=== PATIENT | male | born 1945 | race Caucasian/White ===

== ENCOUNTER → 2016-09-13 | Outpatient (REF) | payer MEDICARE, OTHER ==
[2016-09-13 18:01] LABS: PERCENT SATURATION 6.6 % (19.7-37.4)
== END ==
LOC: M LAB REF 16:22
PROVIDERS: ATTEND Internal Medicine
DX: D50.9 Iron deficiency anemia, unspecified (principal)

== ENCOUNTER → 2017-03-16 | Outpatient (REF) | payer MEDICARE, OTHER ==
[2017-03-16 13:32] LABS: PERCENT SATURATION 10.8 % (19.7-50.0)
== END ==
LOC: M LAB REF 12:58
PROVIDERS: ATTEND Internal Medicine
DX: D50.9 Iron deficiency anemia, unspecified (principal)

== ENCOUNTER → 2017-08-21 | Outpatient (REF) | payer MEDICARE, OTHER ==
[2017-08-21 13:06] LABS: FERRITIN 9 NG/ML (26-388); IRON (FE) 72 UG/DL (65-175); PERCENT SATURATION 18.9 % (19.7-50.0); TOTAL IRON BINDING CAPACITY 380 UG/DL (250-450)
== END ==
LOC: M LAB REF 12:28
DX: D50.9 Iron deficiency anemia, unspecified (principal)
CPT/HCPCS: 83550

== ENCOUNTER 2017-11-28 10:40 | Day surgery (SDC) | payer MEDICARE, BC, OTHER ==
[2017-11-28] MEDS: TRIAMCINOLONE PRES FR 40 MG/ML 1ML(TRIESENCE)(OR EYE ONLY)(J3300 PER 1MG) As Ordered (06:46)
[~2017-11-28 10:40] MED LIST: MIDAZOLAM INJ 2 MG/2 ML VIAL (J2250) As Ordered; PHENYLEPHRINE HCL 10 % OPHTH. SOL 5ML OD; fentaNYL 100 MCG/2 ML INJECTION (J3010) As Ordered
[2017-11-28] MEDS: TROPICAMIDE 1% OPHTH SOLN 2ML OD (12:28)
[2017-11-28] MEDS: PHENYLEPHRINE 2.5% OPHTH SOL 2ML OD (12:28)
[2017-11-28] MEDS: OFLOXACIN 0.3 % (OCUFLOX) OPTH SOL 5ML OD (12:28)
[2017-11-28] MEDS: LIDOCAINE 3.5 % 1ML OPHTH TOPICAL GEL OU (12:28)
[2017-11-28] MEDS: CYCLOPENTOLATE 2% OPHTH SOLN 2ML BTL OD (12:28)
[2017-11-28 12:39] LABS: BEDSIDE GLUCOSE 99 MG/DL (83-110)
[2017-11-28] MEDS: POVIDONE-IODINE 5% OPHTH PREP SOL 30ML As Ordered (14:05)
[2017-11-28] MEDS: HEALON DUET (HEALON 10MG/ML 0.55ML & HEALON ENDOCOAT 30MG/ML 0.85ML) As Ordered ×3 (14:11→14:31)
[2017-11-28] MEDS: LIDOCAINE 1% SDV 5 ML VIAL As Ordered (14:20)
[2017-11-28] MEDS: BSS with VANC/TOB/EPI for EYE CASES IR (14:26)
[2017-11-28] MEDS: CEFUROXIME 1MG/0.1ML INTRACAMERAL INJ As Ordered (14:26)
[2017-11-28] MEDS ORDERED: fentaNYL 100 MCG/2 ML INJECTION (J3010) As Ordered (14:26)
== END 2017-11-28 15:24 | disposition home or self-care (01) ==
LOC: M SDC 10:40
DX: H26.9 Unspecified cataract (principal); H40.811 Glaucoma with increased episcleral venous pressure, right eye; I10 Essential (primary) hypertension; K21.9 Gastro-esophageal reflux disease without esophagitis; E11.9 Type 2 diabetes mellitus without complications; Z79.82 Long term (current) use of aspirin; Z79.899 Other long term (current) drug therapy; Z88.1 Allergy status to other antibiotic agents; Z88.8 Allergy status to other drugs, medicaments and biological substances
CPT/HCPCS: 66984

== ENCOUNTER 2017-12-05 11:16 | Day surgery (SDC) | payer MEDICARE, BC, OTHER ==
[~2017-12-05 11:16] MED LIST changes: +ACETAMINOPHEN 325 MG TAB PO; +CYCLOPENTOLATE 2% OPHTH SOLN 2ML BTL OS; +LIDOCAINE 3.5 % 1ML OPHTH TOPICAL GEL OU; -MIDAZOLAM INJ 2 MG/2 ML VIAL (J2250) As Ordered; +OFLOXACIN 0.3 % (OCUFLOX) OPTH SOL 5ML OS; +PHENYLEPHRINE 2.5% OPHTH SOL 2ML OS; -PHENYLEPHRINE HCL 10 % OPHTH. SOL 5ML OD; +PHENYLEPHRINE HCL 10 % OPHTH. SOL 5ML OS; +PROPARACAINE 0.5% OPHTH SOL 15ML XX; +TROPICAMIDE 1% OPHTH SOLN 2ML OS; -fentaNYL 100 MCG/2 ML INJECTION (J3010) As Ordered
[2017-12-05] MEDS ORDERED: MIDAZOLAM INJ 2 MG/2 ML VIAL (J2250) As Ordered ×2 (13:01)
[2017-12-05] MEDS ORDERED: fentaNYL 100 MCG/2 ML INJECTION (J3010) As Ordered ×4 (13:01→15:14)
[2017-12-05 13:30] LABS: BEDSIDE GLUCOSE 95 MG/DL (83-110)
[2017-12-05] MEDS: POVIDONE-IODINE 5% OPHTH PREP SOL 30ML As Ordered ×2 (15:09)
[2017-12-05] MEDS: CEFUROXIME 1MG/0.1ML INTRACAMERAL INJ As Ordered ×2 (15:09)
[2017-12-05] MEDS: HEALON DUET (HEALON 10MG/ML 0.55ML & HEALON ENDOCOAT 30MG/ML 0.85ML) As Ordered ×4 (15:09→15:15)
[2017-12-05] MEDS: LIDOCAINE 1% SDV 5 ML VIAL As Ordered ×2 (15:09)
[2017-12-05] MEDS: BSS with VANC/TOB/EPI for EYE CASES IR ×2 (15:09)
[2017-12-05] MEDS: LIDOCAINE 2% W/EPIN INJ 20ML **PRES FREE As Ordered ×2 (15:09)
[2017-12-05] MEDS: AcetaZOLAMIDE 500 MG ER CAP PO ×2 (16:00)
[2017-12-05] MEDS ORDERED: TRIMETHOBENZAMIDE 300 MG CAP PO ×2 (16:00)
[2017-12-05] MEDS: KETOROLAC 0.5% OPHTH SOLN XX ×2 (16:01)
== END 2017-12-05 16:15 | disposition home or self-care (01) ==
LOC: M SDC 11:16
DX: H26.9 Unspecified cataract (principal); H40.9 Unspecified glaucoma; I10 Essential (primary) hypertension; E11.9 Type 2 diabetes mellitus without complications; K21.9 Gastro-esophageal reflux disease without esophagitis; R06.83 Snoring; D50.9 Iron deficiency anemia, unspecified; E78.5 Hyperlipidemia, unspecified; Z88.8 Allergy status to other drugs, medicaments and biological substances; Z79.899 Other long term (current) drug therapy; Z79.82 Long term (current) use of aspirin; Z79.84 Long term (current) use of oral hypoglycemic drugs
CPT/HCPCS: 66984

== ENCOUNTER → 2018-05-28 | Outpatient (REF) | payer MEDICARE, OTHER ==
[~2018-05-28] MED LIST changes: -ACETAMINOPHEN 325 MG TAB PO; +ALFU10TA2 PO; +ASPI1TAB PO; +CHLO25TA PO; -CYCLOPENTOLATE 2% OPHTH SOLN 2ML BTL OS; +FERR32TA PO; +GLIP5TAB20 PO; -LIDOCAINE 3.5 % 1ML OPHTH TOPICAL GEL OU; +LIPI10TA PO; +LISI40TA PO; +METF10004 PO; +MULT1TAB10 PO; -OFLOXACIN 0.3 % (OCUFLOX) OPTH SOL 5ML OS; +OMEP20CA3 PO; -PHENYLEPHRINE 2.5% OPHTH SOL 2ML OS; -PHENYLEPHRINE HCL 10 % OPHTH. SOL 5ML OS; -PROPARACAINE 0.5% OPHTH SOL 15ML XX; +TRAV04OPD OU; -TROPICAMIDE 1% OPHTH SOLN 2ML OS; +VITA100067 PO
[2018-05-28 14:38] LABS: PERCENT SATURATION 16.8 % (19.7-50.0)
== END ==
LOC: M LAB REF 12:26
PROVIDERS: ATTEND Internal Medicine
DX: D50.9 Iron deficiency anemia, unspecified (principal)

== ENCOUNTER → 2018-06-11 | Outpatient (REF) | payer MEDICARE, OTHER | LOC: M LABDRWAD 12:16 | PROVIDERS: ATTEND Nurse Practitioner Adult Health | DX: N40.1 Benign prostatic hyperplasia with lower urinary tract symptoms (principal) ==

== ENCOUNTER → 2018-11-30 | Outpatient (CLI) | payer MEDICARE, BC, OTHER ==
[~2018-11-30] MED LIST changes: -ALFU10TA2 PO; +ALFU10TA3 PO; -ASPI1TAB PO; +ASPI81TA26 PO; +OMEP1CAP73 PO; -OMEP20CA3 PO
--- NOTE | 2018-11-30 17:01 | REP ---
Left humerus two views: The distal femoral condyles are excluded at the inferior film margins. There is demineralization. There is no fracture, dislocation, calcification or foreign body. Impression: Negative left humerus except that the distal humeral condyles are excluded at the inferior film margins. Electronically Signed by Uche Cottrell MD 11/30/2018 04:53 P
--- NOTE | 2018-12-01 10:51 | REP ---
Left shoulder three views: There is acromioclavicular osteoarthritis. There is demineralization. There is no fracture or dislocation. There are no calcifications. Impression: Acromioclavicular osteoarthritis. Demineralization. Electronically Signed by Uche Cottrell MD 12/01/2018 07:49 A
== END ==
LOC: M ADAMS 16:34
PROVIDERS: ATTEND Physician Assistant Medical
DX: M19.012 Primary osteoarthritis, left shoulder (principal); S40.012A Contusion of left shoulder, initial encounter; W11.XXXA Fall on and from ladder, initial encounter; Y92.9 Unspecified place or not applicable

== ENCOUNTER → 2020-04-16 | Outpatient (REF) | payer MEDICARE, OTHER ==
[2020-04-16 17:37] LABS: PERCENT SATURATION 31.2 % (19.7-50.0)
== END ==
LOC: M LAB REF 16:23
PROVIDERS: ATTEND Internal Medicine
DX: D50.9 Iron deficiency anemia, unspecified (principal)

== ENCOUNTER → 2021-04-01 | Outpatient (REF) | payer MEDICARE, OTHER ==
[~2021-04-01] MED LIST changes: -LISI40TA PO; +LISI40TA4 PO
[2021-04-01 13:27] LABS: PERCENT SATURATION 29.4 % (19.7-50.0)
== END ==
LOC: M LAB REF 12:34
PROVIDERS: ATTEND Internal Medicine
DX: D50.9 Iron deficiency anemia, unspecified (principal)

== ENCOUNTER → 2021-08-18 | Outpatient (CLI) | payer MEDICARE, OTHER | LOC: M ADAMS 14:13 | PROVIDERS: ATTEND Nurse Practitioner Adult Health | DX: N40.1 Benign prostatic hyperplasia with lower urinary tract symptoms (principal) ==

== ENCOUNTER → 2022-02-14 | Outpatient (REF) | payer MEDICARE, OTHER ==
[2022-02-14 18:22] LABS: PERCENT SATURATION 26.6 % (19.7-50.0)
== END ==
LOC: M LAB REF 16:14
PROVIDERS: ATTEND Internal Medicine
DX: D50.9 Iron deficiency anemia, unspecified (principal)

== ENCOUNTER → 2022-05-26 | Outpatient (CLI) | payer MEDICARE, OTHER, BC ==
[~2022-05-26] MED LIST changes: +VIBE75TA PO; +VITA100093 PO; +VITMTA PO
== END ==
LOC: M LABSMTC 10:14
PROVIDERS: ATTEND Anesthesiology
DX: Z01.812 Encounter for preprocedural laboratory examination (principal); Z20.822 Contact with and (suspected) exposure to COVID-19

== ENCOUNTER 2022-05-31 07:34 | Day surgery (SDC) | payer MEDICARE, OTHER, BC ==
[~2022-05-31] VITALS: Ht 185.4 cm; Wt 107.5 kg
[~2022-05-31 07:34] MED LIST changes: +LIDOCAINE 2% 100MG/5ML SDV (FOR ANES.) As Ordered ONE; +NS 1,000 ML IV ONE; +propofoL 200 MG/20 ML VIAL As Ordered ONE
[2022-05-31 09:14] VITALS: BP 127/61
== END 2022-05-31 09:24 | disposition home or self-care (01) ==
LOC: M OPP 07:34
PROVIDERS: ATTEND Internal Medicine Gastroenterology
DX: Z12.11 Encounter for screening for malignant neoplasm of colon (principal); Z86.010 Personal history of colon polyps; K64.0 First degree hemorrhoids; K57.30 Diverticulosis of large intestine without perforation or abscess without bleeding; I49.3 Ventricular premature depolarization; E11.9 Type 2 diabetes mellitus without complications; E78.00 Pure hypercholesterolemia, unspecified; I10 Essential (primary) hypertension; Z79.02 Long term (current) use of antithrombotics/antiplatelets; Z79.82 Long term (current) use of aspirin; Z79.84 Long term (current) use of oral hypoglycemic drugs; Z79.899 Other long term (current) drug therapy; Z88.1 Allergy status to other antibiotic agents; Z88.8 Allergy status to other drugs, medicaments and biological substances

== ENCOUNTER → 2022-10-25 | Outpatient (REF) | payer MEDICARE, OTHER, BC ==
[~2022-10-25] MED LIST changes: -LIDOCAINE 2% 100MG/5ML SDV (FOR ANES.) As Ordered ONE; -NS 1,000 ML IV ONE; -propofoL 200 MG/20 ML VIAL As Ordered ONE
== END ==
LOC: M LABDRWAD 16:37
PROVIDERS: ATTEND Nurse Practitioner Adult Health
DX: R39.15 Urgency of urination (principal)

== ENCOUNTER → 2022-12-18 | Outpatient (REF) | payer MEDICARE, OTHER, BC ==
[2022-12-18 14:51] LABS: PERCENT SATURATION 20.3 % (19.7-50.0)
[2022-12-18 14:53] LABS: FERRITIN 29.4 NG/ML (10.5-307.3)
== END ==
LOC: M LAB REF 11:39
PROVIDERS: ATTEND Internal Medicine
DX: D50.9 Iron deficiency anemia, unspecified (principal)

== ENCOUNTER → 2023-10-31 | Outpatient (REF) | payer MEDICARE, OTHER ==
[~2023-10-31] MED LIST changes: +ALFU10TA23 PO; -ALFU10TA3 PO
== END ==
LOC: M LABDRWAD 17:23
PROVIDERS: ATTEND Urology
DX: N43.2 Other hydrocele (principal); R97.20 Elevated prostate specific antigen [PSA]

== ENCOUNTER → 2023-12-25 | Outpatient (REF) | payer MEDICARE, OTHER ==
[2023-12-25 14:29] LABS: PERCENT SATURATION 18.6 % (19.7-50.0)
== END ==
LOC: M LAB REF 13:17
PROVIDERS: ATTEND Internal Medicine
DX: D50.9 Iron deficiency anemia, unspecified (principal)

== ENCOUNTER → 2024-11-05 | Outpatient (REF) | payer MEDICARE, OTHER ==
[~2024-11-05] MED LIST changes: +GLIP-318 PO; -GLIP5TAB20 PO; +LISI40TA10 PO; -LISI40TA4 PO
== END ==
LOC: M LABDRWAD 18:28
PROVIDERS: ATTEND Nurse Practitioner Adult Health
DX: N40.1 Benign prostatic hyperplasia with lower urinary tract symptoms (principal)